=== PATIENT | male | born 1935 | race Caucasian/White ===

== ENCOUNTER → 2023-10-18 10:44 | Outpatient (REF) | payer MEDICARE, OTHER, SELFPAY | LOC: RCS 10:44 | PROVIDERS: ATTENDING PHYSICIAN Internal Medicine Cardiovascular Disease; FAMILY PHYSICIAN Family Medicine | DX: I48.3 Typical atrial flutter (principal) | CPT/HCPCS: 93306 ==

== ENCOUNTER → 2023-10-25 08:55 | Day surgery (SDC) | payer MEDICARE, OTHER, SELFPAY ==
--- NOTE | 2023-10-21 11:40 | SLEEP.APNEA ---
Sleep Apnea Order
-
Patient screened as High Risk for Sleep Apnea on Stop Bang Questionnaire. Patient referred to [facility] for Pre-Study.

Name: ANGELO CHACON
: 1935
Home Phone: Use [employer]PrimaryPhone instead
Cell Phone: [f_Reg Other Phone]
Work Phone:
Address: [address] [place] [address]
City: [place]
State: [place]
Zip: [f_[facility] Zip]
Family Physician: INTERVIEWE UNKNOWN - PT NOT
Ordering Provider: Shayla Linda
[2023-10-21 14:21] VITALS: BMI 25.0
== END ==
LOC: CATH 08:55
PROVIDERS: ATTENDING PHYSICIAN Internal Medicine; FAMILY PHYSICIAN Family Medicine; OTHER PHYSICIAN Internal Medicine Cardiovascular Disease
DX: I08.3 Combined rheumatic disorders of mitral, aortic and tricuspid valves (principal); I48.92 Unspecified atrial flutter; I48.91 Unspecified atrial fibrillation; I10 Essential (primary) hypertension; Z79.01 Long term (current) use of anticoagulants
CPT/HCPCS: 93312; 93320; 93325; 92960; 93005

== ENCOUNTER → 2024-01-01 10:38 | Outpatient (REF) | payer MEDICARE, OTHER, SELFPAY | LOC: DHSLP 10:38 | PROVIDERS: ATTENDING PHYSICIAN Internal Medicine; FAMILY PHYSICIAN Family Medicine | DX: G47.33 Obstructive sleep apnea (adult) (pediatric) (principal); R09.02 Hypoxemia | CPT/HCPCS: 95800 ==